=== PATIENT | female | born 2000 | race Caucasian/White ===

== ENCOUNTER 2022-05-02 19:53 | Emergency (ER) | payer OTHER ==
--- NOTE | 2022-05-02 19:56 | ERPHSYRPT ---
- History of Present Illness Time Seen by Provider: 05/02/22 19:56 Source: patient, family Exam Limitations: no limitations Physician History: This is a 21-year-old white female who was using a generic Q-tip prior to arrival when the cotton portion of the Q-tip slipped off into her left ear. Patient did remove the entire pole portion of the Q-tip. She came immediately to the emergency department to have it removed. Patient has no other concerns or complaints. Timing/Duration: abrupt onset ENT Location: ear (L) Prearrival Treatment: no prearrival treatment Modifying Factors: Improves With: nothing Associated Symptoms: other (Left ear with foreign body. No significant pain) Allergies/Adverse Reactions: Penicillins Adverse Reaction (Intermediate, Verified 05/02/22 20:04) Rash Home Medications: norgestimate-ethinyl estradioL [Alk-Ri-Lzuynb Tablet] 1 tab PO DAILY 05/02/22 [History] Travel Risk - International Travel Have you traveled outside of the country in past 3 weeks: No - Coronavirus Screening Are you exhibiting any of the following symptoms?: No Close contact with a COVID-19 positive Pt in past 14-21 Days: No - Review of Systems Constitutional: No Symptoms Eyes: No Symptoms Ears, Nose, & Throat: Other (Foreign body left ear) Respiratory: No Symptoms Cardiac: No Symptoms Abdominal/Gastrointestinal: No Symptoms Genitourinary Symptoms: No Symptoms Musculoskeletal: No Symptoms Skin: No Symptoms Neurological: No Symptoms Psychological: No Symptoms Endocrine: No Symptoms Hematologic/Lymphatic: No Symptoms Immunological/Allergic: No Symptoms All Other Systems: Reviewed and Negative - Past Medical History Pertinent Past Medical History: No - Past Surgical History Past Surgical History: No - Nursing Vital Signs Nursing Vital Signs: Initial Vital Signs Temperature 98.2 F 05/02/22 20:00 Pulse Rate 93 H 05/02/22 20:00 Respiratory Rate 17 05/02/22 20:00 Blood Pressure 136/76 05/02/22 20:00 O2 Sat by Pulse Oximetry 100 05/02/22 20:00 Pain Scale Pain Intensity 0 - Physical Exam General Appearance: no apparent distress, alert Eye Exam: bilateral eye: normal inspection, PERRL, EOMI, abnormal EOM Ear Exam: right ear: canal normal, TM normal, left ear: foreign body (Nurse Katz removed the foreign body with ENT forceps under my direction.), other (Reassessment of the ear and ear canal shows no injury and no retained foreign body), bilateral ear: auricle normal Throat Exam: normal Neck Exam: normal inspection, non-tender, supple, full range of motion, trachea midline Cardiovascular/Respiratory Exam: chest non-tender, no respiratory distress Abdominal Exam: non-tender Neurologic Exam: alert, oriented x 3, cooperative, 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 Post examination shows no retained foreign body and no injury to ear canal or tympanic membrane on the left side - Course Nursing assessment & vital signs reviewed: Yes - Progress Progress: improved Counseled pt/family regarding: diagnosis - Departure Departure Disposition: Home Clinical Impression: Ear foreign body Condition: Stable Critical Care Time: No Referrals: JESSICA LAURA [facility] [Primary Care Provider] - Follow up/PCP as directed Additional Instructions: Be careful using Q-tips or other ear cleansing items.
[2022-05-02 20:01] VITALS: O2SAT 100
[2022-05-02 20:43] VITALS: BP 132/62; PULSE 80
== END 2022-05-02 20:45 | disposition home or self-care (01) ==
LOC: ED 19:53
DX: T16.2XXA Foreign body in left ear, initial encounter (principal)
CPT/HCPCS: 69200; 99281